=== PATIENT | female | born 1960 | race African-American/Black ===

== ENCOUNTER → 2017-07-05 | Outpatient (CLI) | payer OTHER ==
[~2017-07-05] MED LIST: ATORVASTATIN CA20 MG PO; HYDROCHLOROTHIA25 M1 PO; KEPPRA 500 MG500 MG PO; KLOR-CON 10 ER10 MEQ PO; MULTI VITAMIN1 EACH PO; PRINIVIL; TRIAMTERENE-HC1 EAC1 PO; ZESTRIL10 MG PO
== END ==
LOC: RAD 06:00
DX: Z12.31 Encounter for screening mammogram for malignant neoplasm of breast (principal)

== ENCOUNTER → 2017-07-09 | Outpatient (CLI) | payer OTHER | LOC: ULTRA 13:23 | DX: N63 Unspecified lump in breast (principal) ==

== ENCOUNTER → 2018-07-06 | Outpatient (CLI) | payer OTHER | LOC: RAD 01:20 | DX: Z12.31 Encounter for screening mammogram for malignant neoplasm of breast (principal) ==

== ENCOUNTER → 2019-08-15 | Outpatient (CLI) | payer OTHER | LOC: RAD 12:43 | DX: Z12.31 Encounter for screening mammogram for malignant neoplasm of breast (principal) ==

== ENCOUNTER → 2020-08-28 | Outpatient (CLI) | payer OTHER | LOC: BC 10:40 | PROVIDERS: ATTEND Obstetrics & Gynecology | DX: Z12.31 Encounter for screening mammogram for malignant neoplasm of breast (principal) ==

== ENCOUNTER → 2021-08-29 | Outpatient (CLI) | payer OTHER | LOC: BC 11:05 | PROVIDERS: ATTEND Obstetrics & Gynecology | DX: Z12.31 Encounter for screening mammogram for malignant neoplasm of breast (principal) ==